=== PATIENT | female | born 1965 | race Caucasian/White ===

== ENCOUNTER 2020-02-18 22:04 | Emergency (ER) | payer MEDICARE, SELFPAY ==
[2020-02-18 22:56] LABS: #Basophils 0.1 thou/uL (0.0-0.2); #Eosinphils 0.8 thou/uL (0.0-0.7); #Lymphocytes 4.2 thou/uL (1.20-3.40); #Monocytes 0.9 thou/uL (0.11-0.59); %Basophils 0.9 % (0.0-1.0); %Eosinophils 7.7 % (0.0-10.0); %Lymphocytes 42.1 % (21.0-51.0); %Neutrophils 40.3 % (42.0-75.0); Hemoglobin 13.2 g/dL (12.0-16.0); Mean Corpuscular HGB CONC 35.1 g/dL (32.0-36.0); Mean Corpuscular Hemoglobin 33.5 pg (27.0-31.0); Mean Corpuscular Volume 95.5 fL (78.0-98.0); Mean Platelet Volume 8.3 fL (7.4-10.4); Platelet Count 232 thou/uL (130-400); RBC Distribution Width 11.1 % (11.5-14.5); Red Blood Cell (RBC) Count 3.93 mill/uL (4.20-5.40)
[2020-02-18 23:17] LABS: ALT (SGPT) 19 U/L (8-55); AST (SGOT) 24 U/L (5-34); Acetaminophen Less than 6.0 mcg/mL (10.0-30.0); Albumin 4.7 g/dL (3.5-5.0); Alcohol 91 mg/dL (Less than 10); Alkaline Phosphatase 71 U/L (40-110); Anion Gap 12 mmol/L (10-20); BUN (Urea Nitrogen) 8 mg/dL (9.8-20.1); Bilirubin, Total 0.3 mg/dL (0.2-1.2); Calc. Creatinine Clearance 0 mL/min (70-130); Calcium 9.6 mg/dL (7.8-10.44); Carbon Dioxide 28 mmol/L (22-29); Chloride 98 mmol/L (98-107); Estimated GFR-MDRD 88; Globulin 2.4 g/dL (2.4-3.5); Glucose 63 mg/dL (70-105); Potassium 4.2 mmol/L (3.5-5.1); Protein, Total 7.1 g/dL (6.0-8.3); Salicylate Less than 8.0 mg/dL (15.0-30.0); Sodium 134 mmol/L (136-145)
[2020-02-18 23:19] LABS: BHCG - Serum Negative (NEGATIVE); Pregs Control Background? CLEAR/WHITE (CLR/WHITE); Pregs Control Bar Appear? YES (CONTROL BAR)
[2020-02-18 23:33] LABS: Amphetamine Not Detected (NotDetected); Barbiturates Screen Not Detected (NotDetected); Benzodiazepine Screen Not Detected (NotDetected); Cocaine Metabolite Screen Not Detected (NotDetected); Medtox Control Line Valid? VALID (VALID); Medtox Reader # READER 4; Methadone Not Detected (NotDetected); Methamphetamine Not Detected (NotDetected); Opiate Screen Not Detected (NotDetected); Oxycodone Screen Not Detected (NotDetected); Phencyclidine (PCP) Not Detected (NotDetected); THC/Cannabinoid Screen Not Detected (NotDetected); Tricyclic Screen Not Detected (NotDetected)
[2020-02-18 23:45] LABS: Thyroid Stimulating Hormone 4.3864 uIU/mL (0.35-4.94)
[2020-02-19] MEDS ORDERED: chlordiazePOXIDE HCl 25 MG CAP ONE (03:16)
[2020-02-19] MEDS ORDERED: Ibuprofen 200 MG TAB ONE (03:17)
[2020-02-19] MEDS ORDERED: hydrOXYzine 25 MG TAB ONE (04:34)
== END 2020-02-19 11:51 ==
LOC: ERS 22:04
DX: T42.4X2A Poisoning by benzodiazepines, intentional self-harm, initial encounter (principal); T43.592A Poisoning by other antipsychotics and neuroleptics, intentional self-harm, initial encounter; F10.129 Alcohol abuse with intoxication, unspecified; J44.9 Chronic obstructive pulmonary disease, unspecified; G47.00 Insomnia, unspecified; F31.9 Bipolar disorder, unspecified; F43.10 Post-traumatic stress disorder, unspecified; F41.9 Anxiety disorder, unspecified; Z79.899 Other long term (current) drug therapy; Y90.4 Blood alcohol level of 80-99 mg/100 ml
CPT/HCPCS: 36415; 80053; 80306; 80307; 84443; 84703; 85025; 93005

== ENCOUNTER 2023-05-31 03:31 | Inpatient (IN) | payer MEDICARE ==
[2023-05-31] MEDS ORDERED: Ketamine 50 MG/ML (10ML VIAL) ONE (04:54)
[2023-05-31] MEDS ORDERED: CEFAZOLIN 2 GM VIAL ONE ×2 (05:05→15:11)
[2023-05-31] MEDS ORDERED: Ondansetron PF 4 MG/2 ML Vial IVP PRN (07:20)
[2023-05-31] MEDS ORDERED: Morphine 2 MG/ML VIAL SLOW IVP PRN (07:20)
[2023-05-31] MEDS ORDERED: Ketorolac Tromethamine 30 MG/ML VIAL IVP PRN (07:22)
[2023-05-31 08:34] LABS: #Basophils 0.1 thou/uL (0.0-0.2); #Eosinphils 0.1 thou/uL (0.0-0.7); #Monocytes 0.9 thou/uL (0.11-0.59); %Basophils 0.5 % (0.0-1.0); %Eosinophils 0.9 % (0.0-10.0); %Lymphocytes 22.3 % (21.0-51.0); %Monocytes 7.2 % (0.0-10.0); %Neutrophils 68.7 % (42.0-75.0); Hemoglobin 12.6 g/dL (12.0-16.0); Mean Corpuscular Hemoglobin 31.8 pg (27.0-31.0); Mean Corpuscular Volume 93.7 fl (78.0-98.0); Mean Platelet Volume 9.9 fL (7.4-10.4); Platelet Count 272 10x3/uL (130-400); RBC Distribution Width 12.7 % (11.5-14.5); Red Blood Cell (RBC) Count 3.96 mill/uL (4.20-5.40)
[2023-05-31] MEDS: Acetaminophen 325 MG TAB PO SCH ×3 (08:43→20:55)
[2023-05-31] MEDS: Famotidine 20 MG TAB PO SCH ×2 (08:43→20:55)
[2023-05-31] MEDS: Polyethylene Glycol 3350 17 GM Packet PO SCH (08:44)
[2023-05-31] MEDS: Senokot S 8.6-50 MG TAB PO SCH ×2 (08:44→20:55)
[2023-05-31 08:55] LABS: PTT 27.1 sec (22.9-36.1); Phosphorus 4.6 mg/dL (2.3-4.7); Prothrombin Time 13.7 sec (12.0-14.7)
[2023-05-31 08:56] LABS: Anion Gap 13 mmol/L (10-20); BUN (Urea Nitrogen) 7 mg/dL (9.8-20.1); Calc. Creatinine Clearance 0 mL/min (70-130); Calcium 8.8 mg/dL (7.8-10.44); Carbon Dioxide 24 mmol/L (22-29); Chloride 103 mmol/L (98-107); Estimated GFR 72; Glucose 99 mg/dL (70-105); Magnesium 1.9 mg/dL (1.6-2.6); Potassium 4.2 mmol/L (3.5-5.1); Sodium 136 mmol/L (136-145)
[2023-05-31] MEDS ORDERED: Ipratropium/Albuterol 3 ML NEB NEB SCH (09:00)
[2023-05-31] MEDS: Sodium Chloride 0.9% 1,000 ML IV SCH ×2 (09:09→15:18)
[2023-05-31] MEDS: Ketorolac Tromethamine 30 MG/ML VIAL IVP SCH ×3 (09:10→18:02)
[2023-05-31 09:29] VITALS: BMI 29.0
[2023-05-31] MEDS ORDERED: CEFAZOLIN 2 GM in Sodium Chloride 0.9% 100 ML IVPB SCH (10:00)
[2023-05-31] MEDS: Ipratropium/Albuterol 3 ML NEB NEB SCH ×2 (13:10→18:54)
[2023-05-31] MEDS ORDERED: Sodium Chloride 0.9% 100 ML ONE (15:11)
[2023-05-31] MEDS ORDERED: fentaNYL 50 mcg/mL 1 mL Vial ONE ×4 (15:31→17:32)
[2023-05-31] MEDS ORDERED: Midazolam HCl 2 mg/2 ml Vial ONE (15:31)
[2023-05-31] MEDS ORDERED: Ondansetron PF 4 MG/2 ML Vial ONE (15:45)
[2023-05-31] MEDS ORDERED: Ketorolac Tromethamine 30 MG/ML VIAL ONE (15:45)
[2023-05-31] MEDS ORDERED: PROPOFOL 200 MG/20 ML VIAL ONE (15:45)
[2023-05-31] MEDS: CEFAZOLIN 2 GM in Sodium Chloride 0.9% 100 ML IVPB SCH (20:56)
[2023-06-01] MEDS: Sodium Chloride 0.9% 1,000 ML IV SCH (00:10)
[2023-06-01] MEDS: Ketorolac Tromethamine 30 MG/ML VIAL IVP SCH ×5 (00:23→23:24)
[2023-06-01] MEDS: Cyclobenzaprine 10 MG TAB PO PRN ×2 (02:25→20:27)
[2023-06-01] MEDS: Acetaminophen 325 MG TAB PO SCH ×4 (02:25→20:27)
[2023-06-01 04:54] LABS: #Eosinphils 0.7 thou/uL (0.0-0.7); #Monocytes 0.8 thou/uL (0.11-0.59); #Neutrophils 4.9 thou/uL (1.40-6.50); %Basophils 0.4 % (0.0-1.0); %Eosinophils 7.2 % (0.0-10.0); %Lymphocytes 31.5 % (21.0-51.0); %Monocytes 8.3 % (0.0-10.0); %Neutrophils 52.3 % (42.0-75.0); Hemoglobin 11.3 g/dL (12.0-16.0); Mean Corpuscular HGB CONC 32.8 g/dL (32.0-36.0); Mean Corpuscular Hemoglobin 31.1 pg (27.0-31.0); Mean Corpuscular Volume 94.8 fl (78.0-98.0); Mean Platelet Volume 10.3 fL (7.4-10.4); Platelet Count 215 10x3/uL (130-400); RBC Distribution Width 13.1 % (11.5-14.5); Red Blood Cell (RBC) Count 3.63 mill/uL (4.20-5.40); White Blood Cell (WBC) Count 9.3 10x3/uL (4.8-10.8)
[2023-06-01 04:56] LABS: Hemoglobin A1c 5.1 % (4.0-6.0)
[2023-06-01 04:57] LABS: PTT 30.3 sec (22.9-36.1); Prothrombin Time 13.6 sec (12.0-14.7)
[2023-06-01 05:16] LABS: Anion Gap 11 mmol/L (10-20); BUN (Urea Nitrogen) 9 mg/dL (9.8-20.1); Calc. Creatinine Clearance 93 mL/min (70-130); Calcium 8.1 mg/dL (7.8-10.44); Carbon Dioxide 24 mmol/L (22-29); Chloride 109 mmol/L (98-107); Estimated GFR 78; Glucose 101 mg/dL (70-105); Potassium 4.4 mmol/L (3.5-5.1); Sodium 140 mmol/L (136-145)
[2023-06-01] MEDS: CEFAZOLIN 2 GM in Sodium Chloride 0.9% 100 ML IVPB SCH ×2 (05:25→15:06)
[2023-06-01] MEDS: Ipratropium/Albuterol 3 ML NEB NEB SCH ×3 (06:42→18:31)
[2023-06-01] MEDS: Famotidine 20 MG TAB PO SCH ×2 (09:56→20:27)
[2023-06-01] MEDS: Senokot S 8.6-50 MG TAB PO SCH ×2 (09:56→20:27)
[2023-06-01] MEDS: Polyethylene Glycol 3350 17 GM Packet PO SCH (09:56)
[2023-06-02] MEDS: Acetaminophen 325 MG TAB PO SCH ×3 (03:11→15:04)
[2023-06-02] MEDS: Ketorolac Tromethamine 30 MG/ML VIAL IVP SCH ×2 (05:42→12:19)
[2023-06-02] MEDS: Ipratropium/Albuterol 3 ML NEB NEB SCH ×3 (06:45→18:23)
[2023-06-02] MEDS ORDERED: traMADol HCl 50 MG TAB PO PRN (07:25)
[2023-06-02 07:50] VITALS: TEMP 97.8
[2023-06-02] MEDS: Gabapentin 300 MG CAP PO SCH ×2 (09:21→15:03)
[2023-06-02] MEDS: Famotidine 20 MG TAB PO SCH (09:22)
[2023-06-02] MEDS: Senokot S 8.6-50 MG TAB PO SCH (09:22)
[2023-06-02] MEDS: Polyethylene Glycol 3350 17 GM Packet PO SCH (09:22)
[2023-06-02 11:25] VITALS: BP 129/78
[2023-06-02] MEDS: traMADol HCl 50 MG TAB PO SCH ×2 (12:20→17:56)
[2023-06-02] MEDS ORDERED: Ibuprofen 800 MG TAB PO PRN (13:09)
== END 2023-06-02 19:06 | DRG 494 ==
LOC: ERS 03:31 → SURG A 08:15
PROVIDERS: ADMIT Specialist; ATTEND Specialist
PROC: 0QSK04Z Reposition Left Fibula with Internal Fixation Device, Open Approach (ICD-10-PCS; principal; 2023-05-31)
PROC: 0QSK04Z Reposition Left Fibula with Internal Fixation Device, Open Approach (ICD-10-PCS; 2023-05-31)
PROC: 2W3RX1Z Immobilization of Left Lower Leg using Splint (ICD-10-PCS; 2023-05-31)
DX: S82.852A Displaced trimalleolar fracture of left lower leg, initial encounter for closed fracture (principal); W01.0XXA Fall on same level from slipping, tripping and stumbling without subsequent striking against object, initial encounter; M81.0 Age-related osteoporosis without current pathological fracture; J44.9 Chronic obstructive pulmonary disease, unspecified; E11.42 Type 2 diabetes mellitus with diabetic polyneuropathy; I10 Essential (primary) hypertension; F43.10 Post-traumatic stress disorder, unspecified; F31.9 Bipolar disorder, unspecified; F41.9 Anxiety disorder, unspecified; G89.29 Other chronic pain; Z88.6 Allergy status to analgesic agent; Z88.8 Allergy status to other drugs, medicaments and biological substances; Z79.899 Other long term (current) drug therapy; Z90.710 Acquired absence of both cervix and uterus; Z90.89 Acquired absence of other organs
CPT/HCPCS: 27818; 36415; 80048; 83036; 83735; 84100; 85025; 85610; 85730; 86850; 86900; 86901; 93005; 93010; 93306; 96365; 99152; C1713; J1650; J1885; J2250; J2405; J2704; J3010; J3490; J7050; J7620